=== PATIENT | female | born 1970 | race Caucasian/White ===

== ENCOUNTER 2023-05-21 16:27 | Outpatient (CLI) | payer OTHER, SELFPAY | END 2023-05-21 16:28 | disposition home or self-care (01) | PROVIDERS: PCP Physician Assistant Medical; Visit Provider Family Medicine | DX: I10 Essential (primary) hypertension (principal); Z13.29 Encounter for screening for other suspected endocrine disorder; Z13.1 Encounter for screening for diabetes mellitus; Z11.59 Encounter for screening for other viral diseases; Z13.220 Encounter for screening for lipoid disorders | CPT/HCPCS: 80053; 80061; 82043; 82570; 84443; 86803 ==

== ENCOUNTER 2024-11-07 16:41 | Outpatient (CLI) | payer OTHER, SELFPAY | END 2024-11-07 16:42 | disposition home or self-care (01) | LOC: NFLDREF 11-10 08:27 | PROVIDERS: PCP Family Medicine; Referring Provider Family Medicine; Visit Provider Family Medicine | DX: Z00.00 Encounter for general adult medical examination without abnormal findings (principal); F41.9 Anxiety disorder, unspecified; F32.A Depression, unspecified; I10 Essential (primary) hypertension; G47.00 Insomnia, unspecified; B35.1 Tinea unguium; R73.03 Prediabetes; E66.01 Morbid (severe) obesity due to excess calories; Z68.36 Body mass index [BMI] 36.0-36.9, adult | CPT/HCPCS: 80053; 80061; 82043; 82570 ==

== ENCOUNTER 2024-12-26 14:57 | Outpatient (CLI) | payer OTHER, SELFPAY | END 2024-12-26 14:58 | disposition home or self-care (01) | LOC: NFLDREF 12-31 15:57 | PROVIDERS: PCP Family Medicine; Referring Provider Family Medicine; Visit Provider Family Medicine | DX: B35.1 Tinea unguium (principal) | CPT/HCPCS: 80053 ==